=== PATIENT | female | born 1975 | race Caucasian/White ===

== ENCOUNTER 2018-05-26 10:02 | Emergency (ER) | payer OTHER ==
[~2018-05-26] VITALS: Ht 160 cm; Wt 68.0 kg
[~2018-05-26 10:02] MED LIST: FORTAMET1000 MG PO; GLIMEPIRIDE2 MG PO; TOPROL XL100 MG PO; ZESTRIL5 MG PO
== END 2018-05-26 20:02 | disposition home or self-care (01) ==
LOC: ER 10:02
DX: K62.89 Other specified diseases of anus and rectum (principal); R19.7 Diarrhea, unspecified